=== PATIENT | female | born 1970 | race Caucasian/White ===

== ENCOUNTER 2020-10-08 12:24 | Outpatient (REF) | payer OTHER, SELFPAY ==
--- NOTE | 2020-10-08 | MM_ITS ---
EXAMINATION: MM DIAGNOSTIC DIGITAL BREAST TOMOSYNTHESIS, LEFT CLINICAL INFORMATION: Short interval six-month follow-up questionable asymmetric density posterior upper left breast on MLO view. Family history breast cancer, mother age 50. The lifetime risk of breast cancer based on the Tyrer-Cuzick Model is 20.2%. COMPARISON: Mammography: 12/25/2019, 12/18/2019, 06/03/2015, 08/02/2013, 06/15/2011 TECHNIQUE: Digital breast tomosynthesis is performed in both the craniocaudal and mediolateral oblique views along with computer-aided detection (CAD). Synthesized 2D images are generated from the tomosynthesis. FINDINGS: The breasts are heterogeneously dense, which may obscure small masses (ACR BI-RADS breast composition Category c). There is fibrocystic parenchymal pattern similar to prior exams. There is a linear asymmetric density posterior upper left breast similar to prior studies dating back to 2010. There is no developing density or interval suspicious finding. Results are provided to the patient at time of visit by the technologist. MM/MM tomosynthesis diagnostic LT IMPRESSION: Parenchymal pattern is similar to multiple prior exams. ASSESSMENT: BI-RADS 2: Benign RECOMMENDATION: 1. Annual bilateral screening mammography, due in 6 months. 2. The lifetime risk of breast cancer based on the Tyrer-Cuzick Model is 20.2%. Additional annual adjunct screening with breast MRI may be of benefit in women with a risk score of 20% or greater. This patient's information was entered into a reminder system with a target due date for their next mammogram.
== END 2020-10-08 12:25 | disposition home or self-care (01) ==
LOC: HO.MAMMO 12:24
PROVIDERS: PCP Internal Medicine; Visit Provider Internal Medicine
DX: R92.8 Other abnormal and inconclusive findings on diagnostic imaging of breast (principal); R92.2 Inconclusive mammogram
CPT/HCPCS: 77061; 77065

== ENCOUNTER 2021-05-03 10:00 | Outpatient (REF) | payer OTHER, SELFPAY ==
--- NOTE | ~2021-05-03 | MM_ITS ---
EXAMINATION: MM SCREENING DIGITAL BREAST TOMOSYNTHESIS, BILATERAL CLINICAL INFORMATION: Screening. Asymptomatic. The lifetime risk of breast cancer based on the Tyrer-Cuzick Model is 18.4%. COMPARISON: Mammography: October 08, 2020 and studies dating back to August 02, 2013 TECHNIQUE: Digital breast tomosynthesis is performed in both the craniocaudal and mediolateral oblique views along with computer-aided detection (CAD). Synthesized 2D images are generated from the tomosynthesis. Additional left exaggerated craniocaudal view performed. FINDINGS: The breasts are heterogeneously dense, which may obscure small masses (ACR BI-RADS breast composition Category c). There is a stable parenchymal pattern present. A circumscribed densities are seen consistent with previously noted cyst. No suspicious grouping of microcalcific is identified. MM/MM tomosynthesis screening BI IMPRESSION: There are no significant changes from prior study. ASSESSMENT: BI-RADS 2: Benign RECOMMENDATION: Routine annual mammography screening. This patient's information was entered into a reminder system with a target due date for their next mammogram.
== END 2021-05-03 10:01 | disposition home or self-care (01) ==
LOC: HO.MAMMO 10:00
PROVIDERS: Visit Provider Internal Medicine
DX: Z12.31 Encounter for screening mammogram for malignant neoplasm of breast (principal)
CPT/HCPCS: 77063; 77067

== ENCOUNTER 2022-05-04 12:42 | Outpatient (REF) | payer OTHER, SELFPAY ==
--- NOTE | ~2022-05-04 | MM_ITS ---
EXAMINATION: MM SCREENING DIGITAL BREAST TOMOSYNTHESIS, BILATERAL CLINICAL INFORMATION: Screening. Asymptomatic. The lifetime risk of breast cancer based on the Tyrer-Cuzick Model is 19%. COMPARISON: Mammography: 05/03/2021, 10/08/2020, 12/25/2019, 12/18/2019, 06/03/2015, bilateral breast ultrasound 11/22/2009. TECHNIQUE: Digital breast tomosynthesis is performed in both the craniocaudal and mediolateral oblique views along with computer-aided detection (CAD). Synthesized 2D images are generated from the tomosynthesis. FINDINGS: The breasts are heterogeneously dense, which may obscure small masses (ACR BI-RADS breast composition Category c). There is a chronic fibrocystic parenchymal pattern. The left cysts anterior upper outer quadrant are decreased from prior exams. There is no interval developing density o significant mass or architectural abnormality. No abnormal calcifications. The axilla are unremarkable. MM/MM tomosynthesis screening BI IMPRESSION: No mammographic evidence of malignancy. ASSESSMENT: BI-RADS 2: Benign RECOMMENDATION: Routine annual mammography screening. This patient's information was entered into a reminder system with a target due date for their next mammogram.
== END 2022-05-04 12:43 | disposition home or self-care (01) ==
LOC: HO.MAMMO 12:42
PROVIDERS: PCP Student in an Organized Health Care Education/Training Program; Visit Provider Student in an Organized Health Care Education/Training Program
DX: Z12.31 Encounter for screening mammogram for malignant neoplasm of breast (principal)
CPT/HCPCS: 77063; 77067

== ENCOUNTER 2023-04-23 17:16 | Emergency (ER) | payer OTHER, SELFPAY ==
--- NOTE | ~2023-04-23 | XR_ITS ---
EXAMINATION: XR ELBOW, LEFT CLINICAL INFORMATION: Fall. Pain. COMPARISON: None available. TECHNIQUE: AP, lateral, and oblique views of the left elbow. FINDINGS: There is a hemarthrosis. Displacement of the fat pads of the distal humerus. There is an impacted fracture through the neck of the radius. Cortical step-off at the radial neck seen on the image 11/08. No dislocation. XR/XR elbow LT 2V IMPRESSION: Impacted fracture of the neck of the radius.
--- NOTE | 2023-04-23 17:37 | ED.FALL ---
HPI - Fall General Chief Complaint: Extremity Injury, Upper Stated Complaint: Fall/ L elbow pain Time Seen by Provider: 04/23/23 17:58 Source: patient Mode of arrival: ambulatory Limitations: no limitations History of Present Illness HPI Narrative: Patient is a 53 year old assigned female at with no reported medical history presenting to the emergency department today with left elbow pain. Patient states that she was rollerskating yesterday when she fell and landed on her left elbow. Patient states that it has hurt ever since. Patient denies any head strike, numbness, or tingling. Patient denies any dizziness, lightheadedness, abdominal pain, nausea, vomiting, fever, chills, blurry vision, double vision, loss of vision, chest pain, difficulty breathing, shortness of breath, back pain, night sweats, pain with urination, increased urinary frequency, increased urinary urgency, blood in her urine or stool, syncope or a near syncopal episode, bowel incontinence, bladder incontinence, bowel retention, bladder retention, or any other complaints at this time. MD complaint: fall Onset (ago): day(s) (1) Fall witnessed: yes, by family Place fall occurred: other Loss of consciousness: none Prolonged down time: no Symptoms prior to fall: none Context: tripped/slipped Severity: mild Severity scale (1-10): 3 Quality: dull and aching Associated symptoms (after fall): denies Related Data Allergies Allergy/AdvReac Type Severity Reaction Status Date / Time pollen Allergy Unknown Uncoded 08/05/15 00:00 Review of Systems Constitutional: Constitutional: Reports no additional constitutional complaints, Denies chills, Denies fever(s) and Denies night sweats Eyes: Eyes: Reports no additional eye complaints, Denies blurry vision, Denies change in vision, Denies diplopia, Denies eye discharge, Denies loss of vision and Denies eye pain ENT: Denies dizziness Cardiovascular: Cardiovascular: Reports no additional cardiovascular complaints, Denies chest pain, Denies lightheadedness, Denies Loss of Consciousness and Denies dyspnea Respiratory: Respiratory: Reports no additional respiratory complaints and Denies dyspnea Gastrointestinal: Gastrointestinal: Reports no additional gastrointestinal complaints, Denies abdominal pain, Denies melena, Denies hematochezia, Denies change in bowel habits and Denies change in stool character Genitourinary: Genitourinary: Denies hematuria, Denies urinary frequency, Denies dysuria, Denies urinary incontinence, Denies urinary hesitancy and Denies urinary urgency Musculoskeletal: Musculoskeletal: Reports no additional musculoskeletal complaints, Denies numbness and Denies tingling Comments: left elbow pain Neurologic: Denies dizziness, Denies loss of vision, Denies numbness and Denies tingling Psychiatric: Psychiatric: Reports no additional psychiatric complaints Endocrine: Endocrine: Reports no additional endocrine complaints Hematologic/Lymphatic: Hematologic/Lymphatic: Reports no additional hematologic/lymphatic complaints Allergic/Immunologic: Allergic/Immunologic: Reports no additional allergic/immunologic complaints [facility] [place] Past Medical History Attestation statement: The following information was validated with the patient. Source: old records reviewed and nursing notes reviewed Social History Social History Advance Directives: No Advance Directives Information Provided: No Physical Exam Vital Signs: Vital Signs: Last Vital Signs Temp 98.3 F 04/23/23 17:38 Pulse 87 04/23/23 17:38 Resp 20 04/23/23 17:38 BP 128/82 04/23/23 17:38 Pulse Ox 98 04/23/23 17:38 O2 Del Method Room Air 04/23/23 17:38 BMI result Body Mass Index 22.9 Const: General: cooperative, no acute distress, alert and awake Nutritional Appearance: well nourished Orientation/consciousness: patient oriented x3 Limitations: no limitations HEENT: Head: Yes normal to inspection and Yes atraumatic Ears: hearing grossly normal bilaterally and external ears normal General nose exam: Normal external nose present, no nasal discharge noted and no epistaxis Face and sinus: Yes normal facial exam, No abrasion and No laceration Mouth: Normal oral and palatal mucosa present, no drooling and no muffled voice Eyes: General: appearance normal, both eyes and all related structures Periorbital: periorbital findings normal Eyelids: Yes eyelids normal Conjunctivae: conjunctivae normal Pupils: Equal, round and reactive pupils present EOM: EOMs intact bilaterally Neck: Neck: Yes normal visual inspection, Yes full ROM and Yes no lymphadenopathy Chest: Chest palpation & inspection: normal inspection of the chest Resp: Effort & Inspection: normal respiratory effort and able to speak in complete sentences GI: Inspection: Yes normal to inspection Neuro: General: patient oriented x3 and moves all extremities Cranial nerves: Yes Equal, round and reactive pupils present Cognition (Neuro): normal cognition Motor exam (neuro): 5/5 motor strength present throughout Sensory Exam: Normal double simultaneous stimulation for sensation Coordination: [id number] test normal Extrem: Other: pain with left elbow movement General: Yes normal to inspection and Yes capillary refill normal Psych: Appearance: grossly normal Mental Status: mental status grossly normal Affect: normal affect Attitude: cooperative Thought process: Normal thought process present Thought content: Normal thought content present Insight: Good insight present (Psych) Course Course Course Narrative: This is a rapid medical exam. Deferred additional HPI, ROS, PE to primary provider. 52 yo female with history of asthma, arthritis, autoimmune disorder, right handed here with complaints of left elbow pain after rollerskating injury with fall last night. Denies hitting head or LOC. Will check x-rays. VSS Procedures Orthopedic Splinting/Casting Injury #1: Side: left Upper Extremity Injury Location: elbow Upper Extremity Immobilizer: sling/shoulder immobilizer and sugar tong splint Medical Decision Making Medical Decision Making MDM Narrative: Patient is a 53 year old assigned female at with no reported medical history presenting to the emergency department today with left elbow pain. Patient's physical exam showed pain with ROM of the left elbow but was otherwise unremarkable. Left elbow XR showed and impacted neck fracture of the radius. I explained my physical exam findings as well as all test results to the patient. I answered all questions asked by the patient. Patient's left elbow was placed in a sugar tong splint and a sling, without incident. Patient's PMS was intact prior to and after splint and sling placement. I stressed the importance of the patient taking her medication as prescribed. I stressed the importance of the patient following up with her primary care provider and an orthopedic provider. I stressed the importance of the patient returning to the emergency department immediately if her symptoms were to worsen or if she were to develop any dizziness, shortness of breath, difficulty breathing, chest pain, blurry vision, loss of vision, nausea, vomiting, abdominal pain, fever, chills, back pain, or any other complaints. Patient verbalized agreement and understanding with this treatment plan and discharge. Differential Diagnosis Differential Diagnoses: The differential diagnosis associated with the presentation includes radial fracture, elbow fracture, pain Admission/Observation Consideration of admission/observation: Escalation of care including admission/observation considered Patient would have been admitted to the hospital had her work up had any findings where hospital admission was appropriate. Independent Interpretation I performed an independent interpretation of an: Plain X-Ray Interpretation: My interpretation is in agreement with the radiologist's impression of this imaging study. TD/TT:? Tar Processing Technician: BAEXAMINATION: XR ELBOW, LEFT CLINICAL INFORMATION: Fall. Pain.? COMPARISON: None available.? TECHNIQUE: AP, lateral, and oblique views of the left elbow. FINDINGS: There is a hemarthrosis. Displacement of the fat pads of the distal humerus. There is an impacted fracture through the neck of the radius. Cortical step-off at the radial neck seen on the image 11/08. No dislocation. XR/XR elbow LT 2V IMPRESSION: Impacted fracture of the neck of the radius. Dictated By: Joey Arrington MD Signed By: Electronically signed by Joey Arrington MD 04/23/23 [id number] Discharge Plan Discharge Clinical Impression: Radial fracture Patient Disposition: Home, Self-Care Instructions: Arm Fracture in Adults (ED) Additional Instructions: Follow up with your primary care provider and an orthopedic provider. Do NOT get the splint wet. Return to the emergency department immediately if your symptoms worsen or if you develop any dizziness, shortness of breath, difficulty breathing, chest pain, blurry vision, loss of vision, nausea, vomiting, abdominal pain, fever, chills, back pain, or any other complaints. Referrals: [facility] [Provider Group] (Call to establish and follow up with an orthopedic provider. ) Jennifer Mcghee DO [Primary Care Provider] - Interventions: ED Discharge Assessment Last Done: 04/23/23 18:41 Discharge Date/Time: 04/23/23 18:44 Print Language: Ecuadorean
[2023-04-23 17:38] VITALS: BP 128/82; PULSE 87; RESP 20; TEMP 36.8; O2SAT 98; BMI 22.9
== END 2023-04-23 18:44 | disposition home or self-care (01) ==
PROVIDERS: Emergency Provider Student in an Organized Health Care Education/Training Program; PCP Student in an Organized Health Care Education/Training Program
DX: S52.132A Displaced fracture of neck of left radius, initial encounter for closed fracture (principal); M79.602 Pain in left arm; W01.0XXA Fall on same level from slipping, tripping and stumbling without subsequent striking against object, initial encounter; Y93.9 Activity, unspecified; Y92.9 Unspecified place or not applicable; Y99.9 Unspecified external cause status
CPT/HCPCS: 29105; 73070; 99283

== ENCOUNTER 2023-05-06 09:38 | Outpatient (REF) | payer OTHER, SELFPAY ==
--- NOTE | ~2023-05-06 | XR_ITS ---
EXAMINATION: XR ELBOW, LEFT CLINICAL INFORMATION: Pain. COMPARISON: Radiographs dated 04/23/2023. TECHNIQUE: AP, lateral, and oblique views of the left elbow. FINDINGS: The bones and soft tissues are normal. No fracture or joint effusion. Alignment is anatomic. Joint spaces are maintained. XR/XR elbow LT min 3V IMPRESSION: Normal left elbow. The previously noted intrahepatic left radial head fracture is less well appreciated than was noted previously. No joint effusion is presently seen. EXAMINATION: XR WRIST, LEFT CLINICAL INFORMATION: Pain. COMPARISON: None available. TECHNIQUE: PA, lateral, and oblique views of the left wrist are submitted, together with a dedicated navicular view. FINDINGS: The bones and soft tissues are normal. No fracture. Alignment is anatomic with normal joint spaces. There is an ulnar positive variance. No erosions or abnormal soft tissue calcifications. IMPRESSION: Normal left wrist.
--- NOTE | ~2023-05-06 | XR_ITS ---
EXAMINATION: XR ELBOW, LEFT CLINICAL INFORMATION: Pain. COMPARISON: Radiographs dated 04/23/2023. TECHNIQUE: AP, lateral, and oblique views of the left elbow. FINDINGS: The bones and soft tissues are normal. No fracture or joint effusion. Alignment is anatomic. Joint spaces are maintained. XR/XR wrist LT w scaphoid IMPRESSION: Normal left elbow. The previously noted intrahepatic left radial head fracture is less well appreciated than was noted previously. No joint effusion is presently seen. EXAMINATION: XR WRIST, LEFT CLINICAL INFORMATION: Pain. COMPARISON: None available. TECHNIQUE: PA, lateral, and oblique views of the left wrist are submitted, together with a dedicated navicular view. FINDINGS: The bones and soft tissues are normal. No fracture. Alignment is anatomic with normal joint spaces. There is an ulnar positive variance. No erosions or abnormal soft tissue calcifications. IMPRESSION: Normal left wrist.
== END 2023-05-06 09:39 | disposition home or self-care (01) ==
LOC: HO.HOSX 09:38
PROVIDERS: Visit Provider Physician Assistant
DX: S52.122A Displaced fracture of head of left radius, initial encounter for closed fracture (principal); S63.502A Unspecified sprain of left wrist, initial encounter; W19.XXXA Unspecified fall, initial encounter; Y93.9 Activity, unspecified; Y92.9 Unspecified place or not applicable; Y99.9 Unspecified external cause status
CPT/HCPCS: 73080; 73110; 99202

== ENCOUNTER 2023-05-13 14:49 | Outpatient (REF) | payer OTHER, SELFPAY ==
--- NOTE | ~2023-05-13 | MM_ITS ---
EXAMINATION: MM SCREENING DIGITAL BREAST TOMOSYNTHESIS, BILATERAL CLINICAL INFORMATION: Screening. Asymptomatic. The lifetime risk of breast cancer based on the Tyrer-Cuzick Model is 14.4%. COMPARISON: Mammography: This study is compared with prior exams dating back to 2009. TECHNIQUE: Digital breast tomosynthesis is performed in both the craniocaudal and mediolateral oblique views along with computer-aided detection (CAD). Synthesized 2D images are generated from the tomosynthesis. FINDINGS: There are scattered areas of fibroglandular density (ACR BI-RADS breast composition Category b). There are no significant masses, abnormal calcifications, or other abnormalities. There is unchanged focal asymmetry in the upper-outer quadrant of the left breast. This is characterized by well-circumscribed nodularity consistent with benign cyst formation is noted on a prior ultrasound from 2009. MM/MM tomosynthesis screening BI IMPRESSION: No mammographic evidence of malignancy. ASSESSMENT: BI-RADS BI-RADS 2 - Benign Findings RECOMMENDATION: Routine annual mammography screening. 1 year F/U This examination should not preclude the clinical evaluation of a suspicious palpable abnormality. This patient's information was entered into a reminder system with a target due date for their next mammogram.
== END 2023-05-13 14:50 | disposition home or self-care (01) ==
LOC: HO.MAMMO 14:49
PROVIDERS: PCP Student in an Organized Health Care Education/Training Program; Visit Provider Student in an Organized Health Care Education/Training Program
DX: Z12.31 Encounter for screening mammogram for malignant neoplasm of breast (principal)
CPT/HCPCS: 77063; 77067

== ENCOUNTER → 2023-05-13 15:00 | Outpatient (BNV) | payer OTHER, SELFPAY | PROVIDERS: PCP Student in an Organized Health Care Education/Training Program; Visit Provider Radiology Diagnostic Radiology | DX: Z12.31 Encounter for screening mammogram for malignant neoplasm of breast (principal) | CPT/HCPCS: 77063; 77067 ==

== ENCOUNTER 2023-06-10 10:55 | Outpatient (AMB) | payer OTHER, SELFPAY ==
--- NOTE | 2023-06-10 11:20 | MHC.OFFVIS ---
Intake Vital Signs 06/10/23 11:27 Height 5 ft 2 in Weight 125 lb BMI 22.9 Handedness Right Intake Visit Reasons: OV- left elbow fx, DOI 04/22/23 Intake Note: Bonnie is a 53 year old right hand dominant female who presents today with mom for a follow up appointment for her left elbow fx, 04/22/23. Patient states PT is going well and showing some improvements. Having concerns of her wrist pain. Allergies pollen Allergy (Intermediate, Uncoded 05/06/23 09:27) Unknown HPI OV- left elbow fx, DOI 04/22/23 HPI Details 53-year-old right hand dominant female who presents in the office today for a follow up of a left radial head fracture, which occurred on04/22/2023 status post falling while roller skating and landing on her elbow. The patient reports occupational therapy is going well and has seen improvement. She still has some concerns of left wrist pain. [facility] Social History Alcohol intake: former Patient Tobacco Use Status: Former Tobacco user Current occupational status: employed Current occupation: employment law attorney/ right hand dominant Review of Systems Const All systems reviewed & are unremarkable except as noted in HPI and below Physical Exam Vital Signs: BMI result Body Mass Index 22.9 Const General: cooperative, healthy appearing and no acute distress Resp Effort & Inspection: normal respiratory effort and able to speak in complete sentences Cardio Rate: regular rate Peripheral pulses: Peripheral pulses 2+ throughout GI Palpation (GI): Soft to palpation Skin Lesions: no lesions Rashes: no rashes Extrem Other: Left elbow: Normal to inspection. No ecchymosis, erythema, or edema. No tenderness to palpation over the olecranon. No tenderness to the medial or lateral epicondyle. Full ROM in all planes. NVI. Left wrist: Normal to inspection. No ecchymosis, erythema, or edema. Able to perform full finger flexion, extension, abduction, adduction, finger cross, okay sign, and thumbs up without deficit. Able to make a closed fist. Sensation intact. Capillary refill is brisk. Radial pulse intact. Assessment & Plan Assessment & Plan (1) Left radial head fracture: Code(s): S52.122A - Displaced fracture of head of left radius, initial encounter for closed fracture (2) Left wrist sprain: Code(s): S63.502A - Unspecified sprain of left wrist, initial encounter Plan Ms. Dan is a 53-year-old right hand dominant female who presents in the office today for a follow up of a left radial head fracture, which occurred on04/22/2023 status post falling while roller skating and landing on her elbow. The patient reports occupational therapy is going well and has seen improvement. She still has some concerns of left wrist pain. The patient will continue to work with occupational therapy until all her sessions are completed. Follow up will be PRN, or sooner if needed. X-rays of the left elbow which were obtained while in the office today and were reviewed by me, Marguerite English PA-C, revealed radial head fracture with routine healing. X-rays of the left wrist which were obtained while in the office today and were reviewed by me, Marguerite English PA-C, revealed possibility of healed radial styloid fracture. Orders: Orders XR elbow LT min 3V Today M25.529 - Pain in unspecified elbow Patient Instructions: Scribed for Marguerite English PA-C by Marisol Nolan outside medical sales representative, on 06/10/2023 at 10:57 am, EST. Coding Level of Care Code Global (37825) Diagnoses Left radial head fracture S52.122A Left wrist sprain S63.502A
[2023-06-10 11:27] VITALS: BMI 22.9
== END 2023-06-10 11:41 | disposition home or self-care (01) ==
PROVIDERS: PCP Student in an Organized Health Care Education/Training Program; Visit Provider Physician Assistant
DX: S52.122D Displaced fracture of head of left radius, subsequent encounter for closed fracture with routine healing (principal); S63.502D Unspecified sprain of left wrist, subsequent encounter
CPT/HCPCS: 99213

== ENCOUNTER 2023-06-10 11:09 | Outpatient (REF) | payer OTHER, SELFPAY ==
--- NOTE | ~2023-06-10 | XR_ITS ---
EXAMINATION: Left wrist and left elbow. CLINICAL INDICATIONS: Pain. COMPARISON: Left wrist and left elbow 06/05/2023. TECHNIQUE: Left wrist 3 views and left elbow 3 views. FINDINGS: LEFT WRIST: The bones and soft tissues are normal. No visible acute fracture or dislocation seen. The alignment is anatomic. There is minimal soft tissue swelling along the ulnar styloid process. A positive ulnar variance is seen. LEFT ELBOW: Previously visualized impacted radial fracture has resolved or healed. There is no visible acute fracture, dislocation or subluxation seen. The soft tissues are normal. No joint effusion seen. XR/XR wrist LT min 3V IMPRESSION: Unremarkable left wrist and left elbow exam.
--- NOTE | ~2023-06-10 | XR_ITS ---
EXAMINATION: Left wrist and left elbow. CLINICAL INDICATIONS: Pain. COMPARISON: Left wrist and left elbow 06/05/2023. TECHNIQUE: Left wrist 3 views and left elbow 3 views. FINDINGS: LEFT WRIST: The bones and soft tissues are normal. No visible acute fracture or dislocation seen. The alignment is anatomic. There is minimal soft tissue swelling along the ulnar styloid process. A positive ulnar variance is seen. LEFT ELBOW: Previously visualized impacted radial fracture has resolved or healed. There is no visible acute fracture, dislocation or subluxation seen. The soft tissues are normal. No joint effusion seen. XR/XR elbow LT min 3V IMPRESSION: Unremarkable left wrist and left elbow exam.
== END 2023-06-10 11:10 | disposition home or self-care (01) ==
LOC: HO.HOSX 11:09
PROVIDERS: Visit Provider Physician Assistant
DX: S52.122D Displaced fracture of head of left radius, subsequent encounter for closed fracture with routine healing (principal); S63.502D Unspecified sprain of left wrist, subsequent encounter
CPT/HCPCS: 73080; 73110

== ENCOUNTER 2023-06-21 13:00 | Outpatient (RCR) | payer OTHER, SELFPAY ==
--- NOTE | 2023-05-25 14:48 | MHC.OT.EP ---
[address] [phone] Occupational Therapy Plan of Care Patient Name: Bonnie Dan Date of Evaluation: 05/25/23 Diagnosis: Right radial neck fx Pain Location: Some tightness/weak feeling in elbow Pain, sore in digits and radiating down dorsal forearm Sore in volar wrist, base of thumb Pain Score: 6 Pain Scale Used: Numeric (0 - 10) Aggravating Factors: General use, movement of hand Alleviating Factors: Orthosis wear, Motrin occasionally Assessment: 53 yo female fell while roller skating, landing on her right elbow. In ED, x-ray shows impacted right radial neck fx. She was placed in sling and sugar tong and referred to ortho. She followed up 05/06, changed to prefab wrist orthosis and education on gentle AROM. She was referred to OT to continue progression of therapy. On assessment today, she is also concerned about ulna fx, but no fx has been reported in x-rays or clinical notes. She comes to OT w/ resting wrist orthosis and sling, removed for further assessment. Elbow range about 10-150 w/ very minimal pain, likely muscular tightness. Wrist is slightly limited at 52/55 and hand range is good, no issues w/ dexterity or sensation. She has been educated on range and progression of light use, coming out of orthosis for hygiene and exercises at this time. I anticipate she will due well w/ course of OT to progress range and functional strengthening. Frequency and Duration: The patient will be seen 1-2x/wk for 4 weeks Short Term Goals: Ind w/ HEP Ind w/ use of ice and heat as needed Pt to demo use of left hand w/ light bimanual tasks (folding clothes, light meal prep) Gross grasp 15lb Wrist ext/flex 60/60 degrees Manager Product Goals: Elbow ext to 0 QuickDASH score <35 pts Pain free wrist/elbow w/ moderate daily activities Gross grasp >40lb Wean from orthosis wear Treatment Plan: Therapeutic Exercise Therapeutic Activity Home Exercise Program Splinting Patient Education Edema Control ADL Training Paraffin Fluidotherapy MHP Cold Packs Joint Mobilization Soft Tissue Mobilization Kinesiotaping Electronically Signed By: Kaylee Gasca, OTR/L CHT Please Sign and return to therapist. Thank you once again for your referral.
--- NOTE | 2023-06-21 16:37 | MHC.OT.DC ---
[address] [phone] F: [phone] Occupational Therapy Discharge Note Patient Name: Bonnie Dan Provider: Marguerite English Diagnosis: Right radial neck fx Date of Surgery: Date of Evaluation: 05/25/23 Date of Discharge: Treatments to Date: 3 Cancellations to Date: No Shows to Date: Discharge Status: Achieved Goals Improved Function Independent with HEP Discharge Summary: 8 wks 5 days s/p injury, Pain improved, discomfort with end range wrist ext. ROM goals met. [employer] strength improving. Pt reports mild difficulty with daily activities due to avoiding heavy use and weight bearing on her left non dominant hand . Pt is independent with her HEP and exercise progression. Goals met Electronically Signed By: Jodi Navarrete OT CHT CLT Reviewed/agree with student documentation: Therapist: Please Sign and return to therapist, thank you for your referral.
== END 2023-07-06 06:53 | disposition home or self-care (01) ==
LOC: HO.OT 13:00
PROVIDERS: PCP Student in an Organized Health Care Education/Training Program; Visit Provider Physician Assistant
DX: S52.122A Displaced fracture of head of left radius, initial encounter for closed fracture (principal)
CPT/HCPCS: 97110; 97165